=== PATIENT | male | born 1990 | race Caucasian/White ===

== ENCOUNTER 2017-06-13 12:38 | Emergency (ER) | payer BC ==
[2017-06-13] MEDS ORDERED: Diphtheria,Pertussis(Acell),Tetanus Vaccine 0.5 ML Syringe IM ONE (13:02)
--- NOTE | 2017-06-13 13:05 | EDM.PDOC ---
ED HPI GENERAL MEDICAL PROBLEM - General Chief Complaint: Upper Extremity Injury/Pain Stated Complaint: LEFT POINTER FINGER SWELLING FROM [employer]PORATION OFFICER Time Seen by Provider: 06/13/17 12:57 - History of Present Illness INITIAL COMMENTS - FREE TEXT/NARRATIVE: HISTORY AND PHYSICAL: History of present illness: The patient is a healthy 26-year-old male who presents with complaints of pain and swelling to his left index finger that started at 6:15 last p.m. when he injured it on the spray of a power technician. The patient states he is unsure of his last tetanus shot and he is right-hand dominant. The patient says that when he finished work he was going to clean his car with a power technician and he bent over and accidentally hit the trigger turning it on and it sprayed very briefly his left index finger. The remainder of the fingers and hand are without injury. He says that it was very swollen and he "milked it to get the water out ". He says that he did not come in last evening because he thought the swelling would improve and he presents today for evaluation. Review of systems: As per history of present illness and below otherwise all systems reviewed and negative. Past medical history: As per history of present illness and as reviewed below otherwise noncontributory. Surgical history: As per history of present illness and as reviewed below otherwise noncontributory. Social history: No reported history of drug or alcohol abuse. Family history: As per history of present illness and as reviewed below otherwise noncontributory. Physical exam: HEENT: Atraumatic, normocephalic, negative for conjunctival pallor or scleral icterus, mucous membranes moist, throat clear, neck supple, nontender, trachea midline. Lungs: Clear to auscultation, breath sounds equal bilaterally, chest nontender. Heart: S1S2, regular rate and rhythm no overt murmurs Abdomen: Soft, nondistended, nontender. NABS Pelvis: Deferred Genitourinary: Deferred. Rectal: Deferred. Extremities: Atraumatic except for the left second digit where there is diffuse soft tissue swelling of the entire digit which is circumferential and there is some pinkish erythema and fullness but no gross crepitance. The patient is able to flex and extend against resistance. There is a superficial break in the skin seen at the palmar surface of the tuft. The remainder of the fingers and hand are without tenderness defects deformities or erythema. The legs are, negative for cords or calf pain. Neurovascular unremarkable. Neuro: Awake, alert, oriented. Cranial nerves II through XII unremarkable. Cerebellum unremarkable. Motor and sensory unremarkable throughout. Exam nonfocal. Diagnostics: X-ray left index finger Therapeutics: [Tdap, wound care 1358: Case was discussed with Dr. Catalan the hand surgeon on-call at [facility] and he agrees with my plan for conservative management with antibiotics and pain control and follow-up with our hand specialist in the clinic. On reevaluation the patient does not have any crepitus and the entire hand and forearm are nontender without any swelling or crepitance. He is comfortable with the care plan as well Impression: Puncture/pressure injury to left index finger subacute stable Definitive disposition and diagnosis as appropriate pending reevaluation and review of above. Left Index Pain Score (Numeric/FACES): 7 - Related Data Allergies Allergy/AdvReac Type Severity Reaction Status Date / Time No Known Allergies Allergy Verified 06/13/17 13:12 Home Meds: Home Meds Dextroamphetamine/Amphetamine [Adderall 20 mg Tablet] 40 mg PO DAILY 06/13/17 [ History] Review of Systems - Review of Systems Review Of Systems: ROS reveals no pertinent complaints other than HPI. ED EXAM, GENERAL - Physical Exam Exam: See Below (See dictation) Course - Vital Signs Last Recorded V/S: Last Vital Signs Temp 36.7 C 06/13/17 12:40 Pulse 78 06/13/17 12:40 Resp 18 06/13/17 12:40 BP 133/73 06/13/17 12:40 Pulse Ox 98 06/13/17 12:40 - Orders/Labs/Meds Orders: Active Orders 24 hr Category Date Time Status Vaccines to be Administered [RC] PER UNIT ROUTINE Care 06/13/17 13:02 Active Fingers Second Digit Lt F1 [CR] Stat Exams 06/13/17 13:02 Taken Meds: Medications Discontinued Medications Generic Name Dose Route Start Last Admin Trade Name Freq PRN Reason Stop Dose Admin Diphtheria/Tetanus/Acell Pertussis 0.5 ml 06/13/17 13:02 Adacel IM 06/13/17 13:03 .ONCE ONE Departure - Departure Time of Disposition: 14:10 Disposition: Home, Self-Care 01 Condition: Good Clinical Impression: High-pressure injection injury of finger of right hand Qualifiers: Encounter type: initial encounter Qualified Code(s): S69.81XA - Other specified injuries of right wrist, hand and finger(s), initial encounter; W29.8XXA - Contact with other powered hand tools and household machinery, initial encounter; W29.8XXA - Contact with other powered hand tools and household machinery, initial encounter - Discharge Information Referrals: PCP,None [Primary Care Provider] - Forms: ED Department Discharge Additional Instructions: The following information is given to patients seen in the emergency department who are being discharged to home. This information is to outline your options for follow-up care. We provide all patients seen in our emergency department with a follow-up referral. The need for follow-up, as well as the timing and circumstances, are variable depending upon the specifics of your emergency department visit. If you don't have a primary care physician on staff, we will provide you with a referral. We always advise you to contact your personal physician following an emergency department visit to inform them of the circumstance of the visit and for follow-up with them and/or the need for any referrals to a consulting specialist. The emergency department will also refer you to a specialist when appropriate. This referral assures that you have the opportunity for followup care with a specialist. All of these measure are taken in an effort to provide you with optimal care, which includes your followup. Under all circumstances we always encourage you to contact your private physician who remains a resource for coordinating your care. When calling for followup care, please make the office aware that this follow-up is from your recent emergency room visit. If for any reason you are refused follow-up, please contact the [facility] emergency department at and ask to speak to the emergency department charge nurse. Specialty clinic-[facility] [address] [address] Please elevate the hand and prevent further swelling. Keep the wound clean and dry with mild soap and water pat dry and apply bacitracin or Neosporin. Please take antibiotics until they're finished and use pain medications as needed for sleep. During the day use [id number] Tylenol or ibuprofen. Please call and he followed up in our hand clinic with Dr. Betancourt for reevaluation of this plan and return to ER as needed and as discussed - My Orders Last 24 Hours: My Active Orders 06/13/17 13:02 Vaccines to be Administered [RC] PER UNIT ROUTINE Fingers Second Digit Lt F1 [CR] Stat - Assessment/Plan Last 24 Hours: My Active Orders 06/13/17 13:02 Vaccines to be Administered [RC] PER UNIT ROUTINE Fingers Second Digit Lt F1 [CR] Stat
[2017-06-13] MEDS ORDERED: Bacitracin Oint 1 GM U/D Packet TOP ONE (14:12)
[2017-06-13 15:02] VITALS: BP 117/58
--- NOTE | 2017-06-14 11:39 | CR ---
EXAM DATE: 06/13/17 PATIENT'S AGE: 26 Patient: ROGE GALLO Facility: [place], [place] Site . Site : 1990 Study: XRay Extremity Left 2ND DIGIT [id number] 1:18:55 PM Ordering Physician: Doctor Paulino Final Report: INDICATION: Injury. Technique: Three views of the left 2nd finger. Findings: No acute fracture or dislocation. No air collections in the overlying soft tissues. Soft tissue swelling about the finger. No foreign bodies identified. Impression: Soft tissue swelling about the left 2nd finger. No unusual air collections. No fracture. Dictated by Dixon Monzon MD @ Jun 13 2017 1:25PM (Electronic Signature) Report Signed by Proxy. ZELDA
== END 2017-06-13 14:58 | disposition home or self-care (01) ==
LOC: MW.ED 12:38
DX: S69.81XA Other specified injuries of right wrist, hand and finger(s), initial encounter (principal); Z23 Encounter for immunization; W29.8XXA Contact with other powered hand tools and household machinery, initial encounter
CPT/HCPCS: 73140-26-F1; 73140-F1; 90471; 90715; 99283; 99283-25

== ENCOUNTER 2018-05-31 18:35 | Emergency (ER) | payer BC ==
[2018-05-31 19:03] VITALS: BP 115/60
--- NOTE | 2018-05-31 19:45 | EDM.PDOC ---
ED HPI GENERAL MEDICAL PROBLEM - General Chief Complaint: Respiratory Problem Stated Complaint: COUGHING UP BLOOD Time Seen by Provider: 05/31/18 19:31 - History of Present Illness INITIAL COMMENTS - FREE TEXT/NARRATIVE: HISTORY AND PHYSICAL: History of present illness: Patient is a 27-year-old white male presents with a concern of sore throat and some oral pharyngeal lesions consistent with a recent viral diagnosis he had a strep screen from a visit recently at another institution and was told that the strep culture was negative and this was indeed viral he was prescribed Augmentin which he is still on. His main concern relates an episode this morning where he woke up with very dry sore throat and states when he coughed a little bit from the back of his throat with some bloody saliva he has had no further episodes and denies other concern is been no cough no shortness of breath nausea vomiting or other complaints Review of systems: As per history of present illness and below otherwise all systems reviewed and negative. Past medical history: As per history of present illness and as reviewed below otherwise noncontributory. Surgical history: As per history of present illness and as reviewed below otherwise noncontributory. Social history: No reported history of drug or alcohol abuse. Family history: As per history of present illness and as reviewed below otherwise noncontributory. Physical exam: HEENT: Atraumatic, normocephalic, pupils reactive, negative for conjunctival pallor or scleral icterus, mucous membranes moist, throat injected, neck supple , nontender, trachea midline. Patient has small ulcerated areas on his tongue and buccal mucosa consistent with a viral process. Lungs: Clear to auscultation, breath sounds equal bilaterally, chest nontender. Heart: S1S2, regular, negative for clicks, rubs, or JVD. Abdomen: Soft, nondistended, nontender. Negative for masses or hepatosplenomegaly. Negative for costovertebral tenderness. Pelvis: Stable nontender. Genitourinary: Deferred. Rectal: Deferred. Extremities: Atraumatic, negative for cords or calf pain. Neurovascular unremarkable. Neuro: Awake, alert, oriented. Cranial nerves II through XII unremarkable. Cerebellum unremarkable. Motor and sensory unremarkable throughout. Exam nonfocal. Diagnostics: None Therapeutics: None Impression: #1 pharyngitis Definitive disposition and diagnosis as appropriate pending reevaluation and review of above. throat Pain Score (Numeric/FACES): 10 - Related Data Allergies Allergy/AdvReac Type Severity Reaction Status Date / Time No Known Allergies Allergy Verified 05/31/18 19:03 Home Meds: Home Meds Dextroamphetamine/Amphetamine [Adderall 20 mg Tablet] 20 mg PO BID 06/13/17 [ History] Amoxicillin/Clavulanate K [Augmentin 875-125 MG] 1 tab PO BID 05/31/18 [History] Past Medical History - Past Health History Medical/Surgical History: Denies Medical/Surgical History Psychiatric History: Reports: ADD, ADHD Social & Family History - Family History Family Medical History: Noncontributory - Tobacco Use Smoking Status *Q: Never Smoker - Alcohol Use Days Per Week of Alcohol Use: 5 Number of Drinks Per Day: 8 Total Drinks Per Week: 40 - Recreational Drug Use Recreational Drug Use: No ED ROS GENERAL - Review of Systems Review Of Systems: ROS reveals no pertinent complaints other than HPI. ED EXAM, GENERAL - Physical Exam Exam: See Below (Dictation) Course - Vital Signs Last Recorded V/S: Last Vital Signs Temp 36.3 C 05/31/18 19:00 Pulse 78 05/31/18 19:00 Resp 18 05/31/18 19:00 BP 115/60 05/31/18 19:00 Pulse Ox 95 05/31/18 19:00 Departure - Departure Time of Disposition: 19:43 Disposition: Home, Self-Care 01 Condition: Good Clinical Impression: Pharyngitis - Discharge Information *PRESCRIPTION DRUG MONITORING PROGRAM REVIEWED*: Not Applicable *COPY OF PRESCRIPTION DRUG MONITORING REPORT IN PATIENT MASTER: Not Applicable Referrals: PCP,None [Primary Care Provider] - Additional Instructions: The following information is given to patients seen in the emergency department who are being discharged to home. This information is to outline your options for follow-up care. We provide all patients seen in our emergency department with a follow-up referral. The need for follow-up, as well as the timing and circumstances, are variable depending upon the specifics of your emergency department visit. If you don't have a primary care physician on staff, we will provide you with a referral. We always advise you to contact your personal physician following an emergency department visit to inform them of the circumstance of the visit and for follow-up with them and/or the need for any referrals to a consulting specialist. The emergency department will also refer you to a specialist when appropriate. This referral assures that you have the opportunity for followup care with a specialist. All of these measure are taken in an effort to provide you with optimal care, which includes your followup. Under all circumstances we always encourage you to contact your private physician who remains a resource for coordinating your care. When calling for followup care, please make the office aware that this follow-up is from your recent emergency room visit. If for any reason you are refused follow-up, please contact the [facility] emergency department at and asked to speak to the emergency department charge nurse. Tylenol with Codeine as prescribed Motrin as directed push fluids follow primary medical doctor as needed as discussed and return as needed as discussed
== END 2018-05-31 19:57 | disposition home or self-care (01) ==
LOC: MW.ED 18:35
DX: J02.9 Acute pharyngitis, unspecified (principal)
CPT/HCPCS: 99282